=== PATIENT | male | born 1980 | race Caucasian/White ===

== ENCOUNTER 2021-09-18 13:22 | Emergency (ER) | payer OTHER, SELFPAY ==
[2021-09-18 13:26] VITALS: BP 147/88; PULSE 65; RESP 16; TEMP 36.8; O2SAT 97; BMI 27.8
--- NOTE | 2021-09-18 13:44 | XR_ITS ---
WS: [id number] Left hand, 3 views, 09/18/2021 Clinical Data: dorsal laceration Comparison: None. Findings: No fractures or dislocations are seen. The soft tissues are unremarkable. The joint spaces are normal No radiopaque foreign bodies are seen. XR/XR hand LT min 3V* [id number] Impression: Negative left hand.
--- NOTE | 2021-09-18 13:44 | ED_ITS ---
HPI - Wound/Laceration General: Chief Complaint: Wound/Laceration Stated Complaint: Cut hand Time Seen by Provider: 09/18/21 13:36 Source: patient and family Mode of arrival: ambulatory Limitations: no limitations History of Present Illness: Patient is a nice 40-year-old male who presents to ED today along with his for evaluation of a left hand laceration that he sustained after cutting it on a saw. Patient's tetanus is up-to-date. Onset (ago): hour(s) Extremity Location: Left: hand Place: home Patient tetanus UTD: Yes Context: accidental Associated symptoms: Reports no associated symptoms Review of Systems Musc: Reports: extremity pain (L hand); Denies: extremity swelling Skin/Breast: Reports: other (L hand laceration) Neuro: Denies: numbness in extremities, weakness in extremities or sensory changes Physical Exam Const: COMMON NORMALS: no acute distress, average body habitus, patient oriented x3, no limitations, healthy appearing, alert and well nourished Extremity: COMMON NORMALS: full ROM, capillary refill normal and no clubbing, cyanosis or edema GENERAL: Yes normal exam except as noted LEFT UPPER EXTREMITY: Yes hand & digits OTHER: pt has a large linear approximately 12cm laceration to the dorsum of his L hand; no bleeding currently; I can visualize 3rd digit extensor tendon but it does not appear lacerated; no visualized bony involvement; pt has normal cap refills, normal sensory and normal ROM of all digits against resistance Neuro: COMMON NORMALS: patient oriented x3, moves all extremities, no focal motor deficits and no sensory deficits noted SENSORIUM/ORIENTATION: Yes alert Procedures Laceration Laceration 1: Site: hand Side (If applicable): left Size (cm): 12 Description: linear Depth: simple, single layer Local Anesthetic: lidocaine 1% Amount of anesthesia used (mL): 6.0 Pre-repair: wound explored and irrigated extensively Skin layer closed with: nylon Size (cm): 4-0 Number of sutures: 17 Technique: simple, interrupted Course Vital Signs: Vital signs: Vital Signs Temperature 98.3 F 09/18/21 13:26 Pulse Rate 65 09/18/21 13:26 Respiratory Rate 16 09/18/21 14:54 Blood Pressure 157/105 09/18/21 14:54 Pulse Oximetry 99 09/18/21 14:54 MDM - Wound/Laceration Medical Decision Making XR negative. I do not visualize any tendon damage. He maintains full range of motion of his digits against resistance. Wound was copiously irrigated and repaired as documented. Patient will be traveling back home to [place] tomorrow. Recommended he follow-up with orthopedics or hand surgeon for further evaluation and to definitively rule out any tendon or neurovascular injury. Patient be placed on pain meds and antibiotics. He was given IM Ancef here prior to discharge. Lab Data Radiology Impressions Hand X-Ray 09/18/21 13:44 Impression: Negative left hand. Discharge Plan Discharge Patient Disposition: Home Clinical Impression: Laceration of left hand Qualifiers: Encounter type: initial encounter Foreign body presence: without foreign body Qualified Code(s): S61.412A - Laceration without foreign body of left hand, initial encounter Condition: Stable Prescriptions: New hydrocodone-acetaminophen 5-325 mg tablet 1 tab PO Q6H PRN (Reason: pain) Qty: 15 0RF cephalexin 500 mg capsule 500 mg PO Q6H 7 Days Qty: 28 0RF Discharge Orders: Discharge ED (Routine); Ordered 09/18/21 Ordered By: Nini Snell Patient Instructions: Laceration (DC), Opioid Safety Activity Restrictions/Additional Instructions: Keep wound/laceration clean with warm soap and water twice daily. Monitor for signs of infection such as redness, swelling, increased pain, or drainage. Please seek medical re-evaluation if these occur. If you received sutures today these will need to be removed (unless you were told by the provider that they are absorbable). The provider should have discussed with you the length of time until removal-7 TO 10 DAYS. You may return to the emergency department for this service. As we discussed please follow up with an orthopedic surgeon or hand surgeon when you return home to [place]. I hope you begin to feel better soon. Coding Level of Care Code ED Director Of Vocational Training for Isak Mcdonald
[2021-09-18] MEDS: ceFAZolin 1,000 mg SDV 1000 MG IM (14:06)
[2021-09-18 14:07] VITALS: RESP 16
[2021-09-18] MEDS: morphine 4 mg/mL SDV 1 mL IVP (14:07)
[2021-09-18 14:54] VITALS: BP 157/105; RESP 16; O2SAT 99
--- NOTE | 2021-09-18 16:02 | PC.NURSE ---
Cleaned, non-stick dressing applied, secured with gauze wrap. Pt tolerated well.
== END 2021-09-18 16:04 | disposition home or self-care (01) ==
PROVIDERS: Emergency Provider Physician Assistant
DX: S61.412A Laceration without foreign body of left hand, initial encounter (principal); W27.0XXA Contact with workbench tool, initial encounter
CPT/HCPCS: 12004; 73130; 96372; 96374; 99283; 99284; J0690; J2270